=== PATIENT | female | born 1960 | race Caucasian/White ===

== ENCOUNTER 2016-11-07 15:33 | Emergency (ER) | payer BC, SELFPAY | END 2016-11-07 16:10 | disposition home or self-care (01) | LOC: ER 15:33 | DX: S29.012A Strain of muscle and tendon of back wall of thorax, initial encounter (principal); Z87.442 Personal history of urinary calculi; Z90.710 Acquired absence of both cervix and uterus; Z90.49 Acquired absence of other specified parts of digestive tract; Z79.899 Other long term (current) drug therapy; Z79.84 Long term (current) use of oral hypoglycemic drugs; Z88.1 Allergy status to other antibiotic agents; X50.1XXA Overexertion from prolonged static or awkward postures, initial encounter ==